=== PATIENT | male | born 1955 | race Caucasian/White ===

== ENCOUNTER 2020-03-22 12:01 | Inpatient (IN) ==
[2020-03-22] MEDS ORDERED: hydrALAZINE 20 MG/1 ML VIAL IV PRN (15:55)
[2020-03-22] MEDS ORDERED: ALBUTEROL 2.5 MG/3 ML NEB RESP TX PRN (15:55)
[2020-03-22] MEDS ORDERED: guaiFENesin/DM ER 600-30 MG TABLET PO PRN (15:55)
[2020-03-22] MEDS ORDERED: GLUCAGON 1 MG VIAL IM PRN (15:55)
[2020-03-22] MEDS ORDERED: ACETAMINOPHEN 325 MG TABLET PO PRN (15:55)
[2020-03-22] MEDS ORDERED: DEXTROSE 50% 25 GM/50 ML VIAL IV PRN (15:55)
[2020-03-22] MEDS ORDERED: DOCUSATE SODIUM 100 MG CAPSULE PO PRN (15:55)
[2020-03-22] MEDS ORDERED: diphenhydrAMINE CAP 25 MG CAPSULE PO PRN (16:01)
[2020-03-22] MEDS ORDERED: MAGNESIUM SULF RIDER 4 GM in PREMIX 1 EACH IV PRN (16:02)
[2020-03-22] MEDS ORDERED: MAGNESIUM SULF RIDER 2 GM in PREMIX 1 EACH IV PRN (16:02)
[2020-03-22] MEDS ORDERED: oxyCODONE/ACETAMINOPHEN 5-325 MG TABLET PO PRN (16:03)
[2020-03-22] MEDS: SODIUM CHLORIDE 0.9% 1,000 ML IV SCH (16:37)
[2020-03-22] MEDS: ceFAZolin 1,000 MG in SYRINGE 1 EACH IV SCH (16:37)
[2020-03-22] MEDS: oxyCODONE/ACETAMINOPHEN 5-325 MG TABLET PO PRN ×2 (16:42→23:01)
[2020-03-22 16:55] LABS: Basophils % 0.5 % (0.0-0.8); Eosinophils # 0.2 10*3/uL (0.0-0.87); Eosinophils % 2.5 % (0.00-10.9); Hematocrit 30.9 VOL% (42.0-52.0); Hemoglobin 9.8 GM/DL (14.0-18.0); Immature Granulocytes % 0.6 %; Immature Granulocytes Absolute 0.04 #; Lymphocytes # 1.8 10*3/uL (1.4-4.0); Mean Corpuscular HGB Conc 31.7 GM/DL (32-36); Mean Corpuscular Volume 82.6 FL (87-102); Mean Platelet Volume 10.1 FL (9.6-12.0); Monocytes % 7.4 % (1.7-12.7); Platelet Count 222 T/CUMM (130-400); Red Blood Count 3.74 MC/CUMM (3.8-5.5); Red Cell Distribution Width 13.7 % (9.3-17.3); White Blood Count 6.5 T/CUMM (4-12)
[2020-03-22] MEDS ORDERED: PIPERACILLIN/TAZOBACTAM 3,375 MG in SODIUM CHLORIDE 0.9% 100 ML IV SCH (17:00)
[2020-03-22 17:13] LABS: Alanine Aminotransferase 17 U/L (16-61); Albumin 3.1 G/DL (3.4-5.0); Alkaline Phosphatase 56 U/L (45-117); Aspartate Amino Transferase 17 U/L (0-37); Bilirubin,Total < 0.39 MG/DL (0.2-1.0); Blood Urea Nitrogen 22 MG/DL (7-18); Calcium 8.6 MG/DL (8.5-10.1); Estimated Glom Filtration Rate 79 ML/MIN; Glucose 89 MG/DL (74-106); Osmolality,Calculated 278.5 MOS/KG (273-304); Total Protein 6.3 G/DL (6.4-8.3)
[2020-03-22 17:46] LABS: Bilirubin,Urine Negative (Negative); Blood, Urine Negative (Negative); Glucose,Urine (UA) Negative (Negative); Ketones,Urine Negative (Negative); Nitrite,Urine Negative (Negative); Protein,Urine Negative; Urine Appearance CLEAR (Clear); Urine Color Straw (Yellow); Urine Specific Gravity 1.009 (1.001-1.035); Urine Urobilinogen < 2.0 EU/DL (0.2-1.0)
[2020-03-22] MEDS: VANCOMYCIN INJ 1,250 MG in SODIUM CHLORIDE 0.9% 250 ML IV SCH (21:30)
[2020-03-23] MEDS: ceFAZolin 1,000 MG in SYRINGE 1 EACH IV SCH ×3 (04:35→22:41)
[2020-03-23] MEDS: oxyCODONE/ACETAMINOPHEN 5-325 MG TABLET PO PRN ×3 (04:46→22:00)
[2020-03-23] MEDS: SODIUM CHLORIDE 0.9% 1,000 ML IV SCH ×2 (04:53→05:24)
[2020-03-23 06:08] LABS: Basophils % 0.4 % (0.0-0.8); Eosinophils # 0.1 10*3/uL (0.0-0.87); Eosinophils % 1.3 % (0.00-10.9); Hematocrit 30.2 VOL% (42.0-52.0); Hemoglobin 9.8 GM/DL (14.0-18.0); Immature Granulocytes % 0.4 %; Immature Granulocytes Absolute 0.03 #; Lymphocytes # 1.6 10*3/uL (1.4-4.0); Lymphocytes % 20.5 % (21.2-54.2); Mean Corpuscular HGB Conc 32.5 GM/DL (32-36); Mean Corpuscular Volume 82.1 FL (87-102); Mean Platelet Volume 10.3 FL (9.6-12.0); Monocytes % 7.7 % (1.7-12.7); Neutrophils % 69.7 % (38.7-73.9); Platelet Count 240 T/CUMM (130-400); Red Blood Count 3.68 MC/CUMM (3.8-5.5); Red Cell Distribution Width 13.5 % (9.3-17.3); White Blood Count 7.6 T/CUMM (4-12)
[2020-03-23 06:33] LABS: Calcium 8.6 MG/DL (8.5-10.1); Risk Ratio 2.62; Thyroid Stimulating Hormone 0.403 uIU/ml (0.358-3.74); VLDL CHOLESTEROL 17.6 MG/DL
[2020-03-23] MEDS: VANCOMYCIN INJ 1,250 MG in SODIUM CHLORIDE 0.9% 250 ML IV SCH ×2 (08:37→21:45)
[2020-03-23] MEDS: BACLOFEN 10 MG TABLET PO PRN ×2 (08:37→21:59)
[2020-03-23] MEDS: PANTOPRAZOLE 40 MG TABLET PO SCH (08:37)
[2020-03-23] MEDS: MODAFINIL 200 MG PO SCH (09:46)
[2020-03-23] MEDS: hydrOXYzine HCL 25 MG TABLET PO SCH ×2 (15:05→22:00)
[2020-03-23] MEDS: GABAPENTIN 300 MG CAPSULE PO SCH ×2 (15:05→21:45)
[2020-03-23] MEDS: OLMESARTAN 20 MG TABLET PO SCH (16:55)
[2020-03-23] MEDS: valACYclovir 500 MG TABLET PO SCH (21:45)
[2020-03-23] MEDS: PREGABALIN 100 MG CAPSULE PO SCH (21:45)
[2020-03-23] MEDS: AZELASTINE NASAL 137 MCG/SPRAY 30 ML BOTTLE BOTH NARES SCH (21:46)
[2020-03-24] MEDS: SODIUM CHLORIDE 0.9% 1,000 ML IV SCH ×3 (02:54→20:08)
[2020-03-24] MEDS: oxyCODONE/ACETAMINOPHEN 5-325 MG TABLET PO PRN ×4 (04:35→21:18)
[2020-03-24 06:01] LABS: Basophils % 0.7 % (0.0-0.8); Eosinophils # 0.1 10*3/uL (0.0-0.87); Eosinophils % 1.4 % (0.00-10.9); Hematocrit 29.6 VOL% (42.0-52.0); Hemoglobin 9.9 GM/DL (14.0-18.0); Immature Granulocytes % 0.5 %; Immature Granulocytes Absolute 0.03 #; Lymphocytes # 1.3 10*3/uL (1.4-4.0); Mean Corpuscular HGB Conc 33.4 GM/DL (32-36); Mean Corpuscular Volume 82.2 FL (87-102); Mean Platelet Volume 10.1 FL (9.6-12.0); Monocytes % 8.1 % (1.7-12.7); Neutrophils % 66.3 % (38.7-73.9); Platelet Count 243 T/CUMM (130-400); Red Cell Distribution Width 13.7 % (9.3-17.3); White Blood Count 5.7 T/CUMM (4-12)
[2020-03-24] MEDS: ceFAZolin 1,000 MG in SYRINGE 1 EACH IV SCH ×3 (06:02→21:15)
[2020-03-24 06:21] LABS: Calcium 8.6 MG/DL (8.5-10.1); Osmolality,Calculated 279.3 MOS/KG (273-304)
[2020-03-24] MEDS: OLMESARTAN 20 MG TABLET PO SCH (08:34)
[2020-03-24] MEDS ORDERED: OLMESARTAN 20 MG TABLET PO SCH (09:00)
[2020-03-24] MEDS: VANCOMYCIN INJ 1,250 MG in SODIUM CHLORIDE 0.9% 250 ML IV SCH ×2 (09:35→20:05)
[2020-03-24] MEDS: PANTOPRAZOLE 40 MG TABLET PO SCH (10:45)
[2020-03-24] MEDS: DULoxetine 30 MG CAPSULE PO SCH (10:45)
[2020-03-24] MEDS: ATORVASTATIN 40 MG TABLET PO SCH (10:46)
[2020-03-24] MEDS: hydrOXYzine HCL 25 MG TABLET PO SCH ×3 (10:46→20:07)
[2020-03-24] MEDS: PREGABALIN 100 MG CAPSULE PO SCH ×3 (10:47→20:07)
[2020-03-24] MEDS: BACLOFEN 10 MG TABLET PO PRN ×2 (10:47→21:19)
[2020-03-24] MEDS: GABAPENTIN 300 MG CAPSULE PO SCH (10:55)
[2020-03-24] MEDS: AZELASTINE NASAL 137 MCG/SPRAY 30 ML BOTTLE BOTH NARES SCH ×2 (10:56→20:17)
[2020-03-24] MEDS: valACYclovir 500 MG TABLET PO SCH (10:56)
[2020-03-24] MEDS: MODAFINIL 200 MG PO SCH (11:31)
[2020-03-24] MEDS ORDERED: DIAZEPAM 5 MG TABLET PO ONE (12:00)
[2020-03-24] MEDS ORDERED: VANCOMYCIN 1,000 MG VIAL ONE (14:26)
[2020-03-24] MEDS ORDERED: LIDOCAINE 1% 20 ML VIAL ONE (14:48)
[2020-03-24] MEDS ORDERED: KETAMINE 500 MG/10 ML VIAL ONE (14:57)
[2020-03-24] MEDS ORDERED: propofoL 200 MG/20 ML VIAL IV ONE (14:57)
[2020-03-24] MEDS ORDERED: LIDOCAINE 2% 5 ML VIAL ONE (14:57)
[2020-03-24] MEDS ORDERED: MIDAZOLAM 2 MG/2 ML VIAL ONE (14:58)
[2020-03-24] MEDS ORDERED: fentaNYL 100 MCG/2 ML VIAL ONE (14:58)
[2020-03-24] MEDS ORDERED: ONDANSETRON 4 MG/2 ML VIAL IV PRN (15:11)
[2020-03-24] MEDS: HYDROmorphone 2 MG/1 ML VIAL IV PRN ×4 (15:16→15:36)
[2020-03-25] MEDS: oxyCODONE/ACETAMINOPHEN 5-325 MG TABLET PO PRN ×2 (02:54→08:37)
[2020-03-25 05:33] LABS: Basophils # 0.1 10*3/uL (0.0-0.2); Basophils % 0.8 % (0.0-0.8); Eosinophils # 0.2 10*3/uL (0.0-0.87); Eosinophils % 2.9 % (0.00-10.9); Immature Granulocytes % 0.3 %; Immature Granulocytes Absolute 0.02 #; Lymphocytes # 1.6 10*3/uL (1.4-4.0); Lymphocytes % 25.6 % (21.2-54.2); Mean Corpuscular HGB Conc 32.3 GM/DL (32-36); Mean Corpuscular Volume 82.9 FL (87-102); Mean Platelet Volume 9.9 FL (9.6-12.0); Monocytes % 10.5 % (1.7-12.7); Neutrophils % 59.9 % (38.7-73.9); Platelet Count 253 T/CUMM (130-400); Red Blood Count 3.74 MC/CUMM (3.8-5.5); Red Cell Distribution Width 13.5 % (9.3-17.3); White Blood Count 6.2 T/CUMM (4-12)
[2020-03-25] MEDS: ceFAZolin 1,000 MG in SYRINGE 1 EACH IV SCH ×2 (05:50→14:00)
[2020-03-25 05:51] LABS: Calcium 8.8 MG/DL (8.5-10.1); Osmolality,Calculated 279.3 MOS/KG (273-304)
[2020-03-25] MEDS: OLMESARTAN 20 MG TABLET PO SCH (08:38)
[2020-03-25] MEDS: hydrOXYzine HCL 25 MG TABLET PO SCH (08:38)
[2020-03-25] MEDS: DULoxetine 30 MG CAPSULE PO SCH (08:39)
[2020-03-25] MEDS: PANTOPRAZOLE 40 MG TABLET PO SCH (08:39)
[2020-03-25] MEDS: PREGABALIN 100 MG CAPSULE PO SCH (08:39)
[2020-03-25] MEDS: MODAFINIL 200 MG PO SCH (08:39)
[2020-03-25] MEDS: ATORVASTATIN 40 MG TABLET PO SCH (08:39)
[2020-03-25] MEDS: valACYclovir 500 MG TABLET PO SCH (08:40)
[2020-03-25] MEDS: SODIUM CHLORIDE 0.9% 1,000 ML IV SCH (09:00)
[2020-03-25] MEDS ORDERED: SODIUM HYPOCHLORITE 0.25% IRRIG 473 ML BOTTLE TOP SCH (09:00)
[2020-03-25] MEDS: AZELASTINE NASAL 137 MCG/SPRAY 30 ML BOTTLE BOTH NARES SCH (09:55)
[2020-03-25] MEDS: VANCOMYCIN INJ 1,250 MG in SODIUM CHLORIDE 0.9% 250 ML IV SCH (09:56)
[2020-03-25 11:24] VITALS: BP 155/81
== END 2020-03-25 14:40 | disposition home health service (06) | DRG 920 ==
LOC: N.3E 14:38 → SUATTDRO 14:38 → N.3E 03-23 16:12
PROVIDERS: ADMIT Internal Medicine; ATTEND Internal Medicine